=== PATIENT | female | born 1995 | race American Indian/Alaskan Native ===

== ENCOUNTER 2017-12-05 18:20 | Emergency (ER) | payer MEDICAID ==
[2017-12-05 18:28] VITALS: BP 130/88
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
[2017-12-05] MEDS ORDERED: NORCO 5/325 PO ONE (23:27)
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
== END 2017-12-06 00:10 | disposition home or self-care (01) ==
LOC: ED 18:20
DX: R07.89 Other chest pain (principal); V49.49XA Driver injured in collision with other motor vehicles in traffic accident, initial encounter; F17.200 Nicotine dependence, unspecified, uncomplicated; X58.XXXA Exposure to other specified factors, initial encounter; Y93.89 Activity, other specified; Y92.89 Other specified places as the place of occurrence of the external cause; Y99.8 Other external cause status
CPT/HCPCS: 71046; 93005; 93010